=== PATIENT | female | born 1995 | race Caucasian/White ===

== ENCOUNTER 2023-03-22 09:17 | Day surgery (SDC) | payer BC, SELFPAY ==
[2023-03-20 12:51] VITALS: BMI 28.3
--- NOTE | 2023-03-21 10:31 | P.CONAN_ITS ---
Documented by User: Colette Mac NP 03/21/23 10:31 HPI - Anesthesia Eval Consult details Narrative: 27yo F for Upper Endoscopy and Colonoscopy [facility] Past Medical History Medical History Joint pain Anxiety and depression Surgical History Surgical History History of breast lump/mass excision Social History Social History Patient Tobacco Use Status: Never used Tobacco Meds Allergies Allergy/AdvReac Type Severity Reaction Status Date / Time No Known Allergies Allergy Verified 03/22/23 09:21 Home Medications Medication Instructions Recorded Confirmed Last Taken Type sertraline 50 mg tablet 50 mg PO DAILY 03/20/23 03/20/23 Unknown History Exam Height,Weight and Vital Signs: Height 5 ft 5 in Weight 77.111 kg Assessment and Plan Assessment Anesthesia Assessment: Chart Reviewed Documented by User: Oly Garibay MD 03/22/23 09:50 [facility] Past Medical History Medical History Joint pain Anxiety and depression Functional capacity: wheelchair bound Surgical History Surgical History History of breast lump/mass excision History of Problems with Anesthesia: No Social History Social History Patient Tobacco Use Status: Never used Tobacco Meds Allergies Allergy/AdvReac Type Severity Reaction Status Date / Time No Known Allergies Allergy Verified 03/22/23 09:21 Home Medications Medication Instructions Recorded Confirmed Last Taken Type sertraline 50 mg tablet 50 mg PO DAILY 03/20/23 03/20/23 Unknown History Exam Airway Mallampati Class: II TM Dist: >3cm Neck ROM: Full Loose/Missing/Broken Teeth: No Heart: RRR Lungs: CTA Assessment and Plan Assessment Anesthesia Assessment: Anesthesia Plan Discussed Final Anesthetic Review History of Problems with Anesthesia: No NPO: Yes ASA Class: I Final Preanesthetic Review: Meds/Allgs Chart Reviewed, Consent Obtained/Reviewed and Anes Risks/Benef Reviewed Patient Risk: Low Procedure Risk: Intermediate Anesthetic Plan Anesthetic Plan: MAC: Disposition: Standard PACU
[2023-03-22 09:29] VITALS: BMI 28.3
[2023-03-22 09:32] LABS: UPreg QC Valid YES; Urine Pregnancy NEGATIVE (NEGATIVE)
[2023-03-22] MEDS: Lactated Ringers 1,000 ML 100 ML IVCONT (09:33)
[2023-03-22 09:37] VITALS: BP 150/79; PULSE 95; RESP 18; TEMP 36.7; O2SAT 98
--- NOTE | 2023-03-22 09:40 | P.HPSUR_ITS ---
Pre-Procedural Eval Section A Date of Service: 03/22/23 Section B Chief Complaint: Other specified symptoms and signs involving the d Details of Present Illness: see H&P no changes Relevant Family History (Specify if Yes): Yes Relevant Social History: None Present Medications: see Short Stay Collaborative assessment Medical History: No relevant PMH History of Previous Operations: No relevant previous surgery Allergies: Allergies Allergy/AdvReac Type Severity Reaction Status Date / Time No Known Allergies Allergy Verified 03/22/23 09:21 Review of Systems Sugical H&P ROS: Negative: Constitution, Cardiovascular, Respiratory, Neuro logical, Psychiatric, Hem-Onc, Allergic/Immunologic, Gastrointestinal, Genitourinary, Musculoskeletal, Integumentary, Endocrine and Eyes/Ears/Nose/Throat Exam Surgical H&P Exam: Normal: HEENT, Normal: Heart, Normal: Lungs, Normal: Extremities, Normal: Abdomen, Normal: Skin and Normal: Neurological Plan Diagnosis/Plan: Unchanged I have reviewed the history and physical and performed a pertinent physical examination on my patient. No changes have occurred unless specified. Time Spent With Patient Time: Total time managing care of this patient today ____ minutes.
--- NOTE | 2023-03-22 09:54 | HO.ANESPROP2 ---
[facility] Past Medical History Medical History Joint pain Anxiety and depression Surgical History Surgical History History of breast lump/mass excision History of Problems with Anesthesia: No Social History Social History Patient Tobacco Use Status: Never used Tobacco Meds Allergies Allergy/AdvReac Type Severity Reaction Status Date / Time No Known Allergies Allergy Verified 03/22/23 09:21 Active Medications: Current Medications Lactated Ringer's (Lr) 1,000 mls @ 100 mls/hr IVCONT .Q10H DIEGO Last Admin: 03/22/23 09:33 Dose: 100 mls/hr Home Medications Medication Instructions Recorded Confirmed Last Taken Type sertraline 50 mg tablet 50 mg PO DAILY 03/20/23 03/20/23 Unknown History Exam Height,Weight and Vital Signs: Height 5 ft 5 in Weight 77.111 kg Last Vital Signs Temp 98.1 F 03/22/23 09:37 Pulse 95 03/22/23 09:37 Resp 18 03/22/23 09:37 BP 150/79 H 03/22/23 09:37 Pulse Ox 98 03/22/23 09:37 O2 Del Method Room Air 03/22/23 09:37 Pertinent Lab Results Pertinent Lab Results: Laboratory Tests 03/22/23 09:15 Urine Test NEGATIVE Airway Mallampati Class: II TM Dist: >3cm Neck ROM: Full Loose/Missing/Broken Teeth: No Heart: RRR Lungs: CTA Assessment and Plan Assessment Anesthesia Assessment: Anesthesia Plan Discussed and Chart Reviewed Final Anesthetic Review History of Problems with Anesthesia: No NPO: Yes ASA Class: I Final Preanesthetic Review: Meds/Allgs Chart Reviewed, Consent Obtained/Reviewed and Anes Risks/Benef Reviewed Patient Risk: Low Procedure Risk: Intermediate Anesthetic Plan Anesthetic Plan: MAC: Disposition: Standard PACU
[2023-03-22 10:27] VITALS: BP 121/80; PULSE 131; RESP 16; TEMP 36.6; O2SAT 99
[2023-03-22 10:42] VITALS: BP 129/82; PULSE 100; RESP 16; TEMP 36.9; O2SAT 100
--- NOTE | 2023-03-22 10:57 | OP_ITS ---
DATE OF SERVICE: 03/22/2023 SURGEON: Sunny Thorne MD INDICATIONS: Abdominal pain and change in bowel movements. PREOPERATIVE DIAGNOSIS: POSTOPERATIVE DIAGNOSIS: PROCEDURE PERFORMED: 1. Upper endoscopy with biopsy. 2. Colonoscopy to the terminal ileum with biopsy. ESTIMATED BLOOD LOSS: COMPLICATIONS: ANESTHESIA: Monitored anesthesia care. ASSISTANTS: SPECIMENS: DESCRIPTION OF PROCEDURE: A history and physical performed. The risks and benefits of the procedure were explained to the patient. Informed consent was obtained. The patient was placed in the left lateral decubitus position. The Olympus video gastroscope was introduced into the esophagus, stomach, and duodenum. Examination was performed. The scope was removed. She was repositioned for colonoscopy. A digital rectal exam was performed and was found to be normal. The Olympus pediatric video colonoscope was introduced into the rectum and advanced to the cecum. The cecum was identified by transillumination, palpation, and identification of ileocecal valve. Examination was performed and the scope was removed. She tolerated both procedures well and was taken to recovery in stable condition. FINDINGS: Upper endoscopy: Esophagus, the esophagus was normal. Stomach, stomach showed no evidence of masses, ulcers, or polyps. Duodenum, the bulb and second portion were normal. Biopsies were obtained from the EG junction, antrum, and duodenum. Colonoscopy: The terminal ileum was normal. The visualized colonic mucosa was normal. The quality of prep was good. There was no evidence of Crohn disease or ulcerative colitis. Biopsies were obtained from the terminal ileum and from the sigmoid. Retroflexed examination was normal. IMPRESSION: 1. Normal upper endoscopy. 2. Normal colonoscopy. RECOMMENDATIONS: Follow up the biopsy results. Begin colon cancer screening at age 46. MD NATALIIA Avila/ELISE / [id number] MTDD
== END 2023-03-22 11:26 | disposition home or self-care (01) ==
PROVIDERS: Nurse Practitioner; PCP Nurse Practitioner Family; Visit Provider Internal Medicine Gastroenterology
PROC: (CPT 45380; principal; 2023-03-22 10:40)
DX: R19.4 Change in bowel habit (principal); R10.84 Generalized abdominal pain; K29.50 Unspecified chronic gastritis without bleeding; K20.90 Esophagitis, unspecified without bleeding; M25.50 Pain in unspecified joint; F41.8 Other specified anxiety disorders; Z79.899 Other long term (current) drug therapy
CPT/HCPCS: 45380; 43239; 81025; 88305; 88313; 88342; J1596; J2250; J2704